=== PATIENT | female | born 1945 | race African-American/Black ===

== ENCOUNTER → 2018-06-27 | Outpatient (CLI) | payer OTHER | LOC: RAD 02:02 | DX: Z12.31 Encounter for screening mammogram for malignant neoplasm of breast (principal) ==

== ENCOUNTER → 2020-01-21 | Outpatient (CLI) | payer OTHER | LOC: LAB 13:31 | PROVIDERS: ATTEND Family Medicine | DX: U07.1 COVID-19 (principal); Z20.828 Contact with and (suspected) exposure to other viral communicable diseases ==

== ENCOUNTER → 2020-04-01 | Outpatient (CLI) | payer OTHER | LOC: BC 09:22 | PROVIDERS: ATTEND Family Medicine | DX: Z12.31 Encounter for screening mammogram for malignant neoplasm of breast (principal) ==

== ENCOUNTER → 2021-04-16 | Outpatient (CLI) | payer OTHER | LOC: BC 10:15 | PROVIDERS: ATTEND Family Medicine | DX: Z12.31 Encounter for screening mammogram for malignant neoplasm of breast (principal) ==

== ENCOUNTER → 2021-05-07 | Day surgery (SDC) | payer OTHER ==
[~2021-05-07] VITALS: Ht 160 cm; Wt 102.1 kg
[~2021-05-07] MED LIST: CENTRUM SILVER1 EAC6 PO; CLARITIN10 M3 PO; ESOMEPRAZOLE MA20 MG PO; FLAXSEED340 GM PO; HYDROCODON-ACE1 EAC7 PO; JANUVIA 50 MG T50 MG PO; LOSARTAN-HCTZ1 EAC3 PO; METFORMIN HCL500 MG PO; NORVASC5 MG PO
[2021-05-07 09:30] VITALS: BP 151/72
[2021-05-07 11:03] LABS: CALCIUM 9.1 mg/dL (8.5-10.1); CREATININE 1.5 mg/dL (0.6-1.0); POTASSIUM 3.8 mmol/L (3.5-5.1)
--- NOTE | 2021-05-07 14:04 | EKG ---
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[place] : 1945 Requested By: Davie Gibson Order Number: [id number] MD: Rah Marie Measurements Intervals [place] Rate: 77 P: 33 [place]: 173 QRS: -44 QRSD: 106 T: 58 QT: 390 QTc: 442 Interpretive Statements Sinus rhythm Left anterior fascicular block Abnormal R-wave progression, late transition Baseline wander in lead(s) II,aVR,aVF Compared to ECG 05/04/2008 18:14:23 Left anterior fascicular block now present Sinus arrhythmia no longer present Electronically Signed On 05-07-2021 14:03:43 CDT by Rah Marie [email or web address] <ELECTRONICALLY SIGNED> By: Rah Marie MD, FAC 05/07/21 1403 0946 0946 Rah Marie MD, [facility] /EPI
--- NOTE | 2021-05-11 12:01 | O ---
[facility] [place] [address] OPERATIVE REPORT Name: MELISSA WRIGHT Room #: REG [facility] M..#: [id number] Admission: 05/07/21 Attend Phys: Davie Gibson MD Discharge: Date of : 41 Report #: [id number] THIS REPORT FOR: cc: Cesario Anton MD, Rene P. MD Chu, Peter Y. MD ~ cc: Cesario Anton MD DATE OF SERVICE: 05/07/2021 PREOPERATIVE DIAGNOSIS: Right back mass, intramuscular located, likely lipoma. POSTOPERATIVE DIAGNOSIS: Right back mass, intramuscular located, likely lipoma. PROCEDURE PERFORMED: Excision of intramuscular lipoma. ANESTHESIA: General. SURGEON: Davie Gibson MD COMPLICATIONS: None. ESTIMATED BLOOD LOSS: 5 mL. PROCEDURE NOTE: With the patient in the lateral position with an LMA, the mass was identified. The right side was marked preoperatively. The site of the incision was marked. Incision is about 5-6 cm. After dissecting through the skin, subcutaneous tissue, Ellie's layer and then the deeper fat, there was no tumor or lipoma found. The lipoma was deeper. The latissimus muscle was then identified. The fascia was opened. The muscle was then divided. As soon as I started to separate the muscle, a well-formed lipoma was found. This measured 4 cm in diameter. The lipoma was freed. There was some fatty tissue adjacent that I also freed and removed to ensure complete removal of the lipoma. Even though the lipoma was pretty well defined along the edges. This feels soft and consistent with a benign fatty tumor. Hemostasis obtained. The fascia over the latissimus muscle was closed with 4-0 PDS, the Ellie's layer was closed with 4-0 PDS in running fashion. Skin was closed with 5-0 PDS. Steri-Strips, 4 x 4, Op-Site used for dressing. The patient tolerated the procedure well and was taken to recovery room. <ELECTRONICALLY SIGNED> By: Davie Gibson MD 05/11/21 1201 1148 1200 Davie Gibson MD /nt
--- NOTE | 2021-05-11 13:09 | PATH ---
[facility] [address] [place] [address] PATHOLOGY RPT PROCEDURE Name: MELISSA WRIGHT Room #: [facility].#: [id number] Admission: 05/07/21 Date of : 41 Discharge: Report #: [id number] Path Case #: [id number] [facility] Accession Number: [id number] . 01 Material submitted: . back - INTRAMUSCULAR LIPOMA RIGHT BACK. Modifiers: right . 01 Diagnosis: Adipose tissue and muscle "intramuscular lipoma right back": - Mature lobulated fibroadipose tissue consistent with an intramuscular lipoma. ([facility]; 05/10/2021) [facility] 05/10/2021 1230 Local . 01 Electronically signed: . Joshua Jimenez MD, Pathologist NPI- [id number] . 01 Gross description: . Fixative: Formalin Labeled: Intramuscular lipoma right back Specimen received: Intact encapsulated soft tissue mass Dimensions: 5.3 x 4.7 x 1.5 cm External surface: Yellow-park and smooth, mostly encapsulated The external surface is inked black. Cut surface: Yellow-park and homogeneous without hemorrhage or necrosis . Ssn/Ssbn Assistant Navigator sections are submitted in A1-A3. ([facility]; 05/08/2021) [facility] 05/08/2021 1051 Local . 01 Pathologist provided ICD-10: D17.1 . 01 CPT . 222534 Specimen Comment: A courtesy copy of this report has been sent to [phone], [phone] Specimen Comment: [id number] Specimen Comment: Report sent to / DR HYLTON Specimen Comment: A duplicate report has been generated due to demographic updates. Performed at: 01 [facility] [address], [place] [id number] MD Joshua Jimenez MD Phone: [phone]
== END | disposition home or self-care (01) ==
LOC: OR 08:20
PROVIDERS: ATTEND Surgery
DX: D17.1 Benign lipomatous neoplasm of skin and subcutaneous tissue of trunk (principal); I10 Essential (primary) hypertension; E11.9 Type 2 diabetes mellitus without complications; K21.9 Gastro-esophageal reflux disease without esophagitis; Z98.890 Other specified postprocedural states; Z79.899 Other long term (current) drug therapy; Z20.822 Contact with and (suspected) exposure to COVID-19
CPT/HCPCS: 50010; 50101; 50386; 50403; 56524; 56525; 62110; 62900; 70005